=== PATIENT | male | born 1960 | race Caucasian/White ===

== ENCOUNTER 2016-06-08 05:19 | Observation (INO) | payer BC, OTHER ==
[2016-06-08] MEDS ORDERED: MULTI VITAMINS1 TAB PO (07:36)
[2016-06-08] MEDS ORDERED: VITAMIN D1000 IU PO (07:37)
[2016-06-08] MEDS ORDERED: TAMBOCOR50 MG PO (07:38)
[2016-06-08] MEDS ORDERED: TENORMIN 2525 MG/TAB PO (07:38)
[2016-06-08] MEDS ORDERED: LANTUS100 U/ML SQ (07:39)
[2016-06-08] MEDS ORDERED: LIPITOR 10MG10 MG PO (07:52)
[2016-06-08] MEDS ORDERED: GLUCOPHAGE500 MG/TAB PO (07:52)
[2016-06-08] MEDS ORDERED: DIABETA 5MG5 MG/TAB PO (07:52)
[2016-06-08] MEDS ORDERED: ZESTRIL40 MG PO (07:53)
[2016-06-08] MEDS ORDERED: VISTARIL 2525 MG/CAP PO (07:54)
[2016-06-08 10:28] VITALS: BP 116/71; PULSE 65
== END 2016-06-08 18:01 | disposition home or self-care (01) ==
LOC: SURG 05:19
DX: K80.20 Calculus of gallbladder without cholecystitis without obstruction (principal); I10 Essential (primary) hypertension; E11.9 Type 2 diabetes mellitus without complications; Z79.4 Long term (current) use of insulin
CPT/HCPCS: C9113; G0378

== ENCOUNTER 2016-07-01 08:50 | Day surgery (SDC) | payer BC ==
[~2016-07-01] VITALS: Ht 176.5 cm; Wt 137.3 kg
[~2016-07-01 08:50] MED LIST: DIABETA 5MG5 MG/TAB PO; GLUCOPHAGE500 MG/TAB PO; LANTUS100 U/ML SQ; LIPITOR 10MG10 MG PO; MULTI VITAMINS1 TAB PO; TAMBOCOR50 MG PO; TENORMIN 2525 MG/TAB PO; VISTARIL 2525 MG/CAP PO; VITAMIN D1000 IU PO; ZESTRIL40 MG PO
[2016-07-01] MEDS ORDERED: TYLENOL 500MG500 MG PO (09:20)
[2016-07-01 12:35] VITALS: BP 125/71; PULSE 54; TEMP 98.2
[2016-07-01 12:50] VITALS: BP 117/71; PULSE 52
[2016-07-01 13:05] VITALS: BP 121/73; PULSE 56
[2016-07-01 13:20] VITALS: BP 109/68; PULSE 51
[2016-07-01 13:50] VITALS: BP 113/58; PULSE 49
[2016-07-01 15:04] VITALS: BP 124/76; PULSE 55; TEMP 97.8
== END 2016-07-01 14:15 | disposition home or self-care (01) ==
LOC: SDCO 08:50
DX: K81.1 Chronic cholecystitis (principal); I10 Essential (primary) hypertension; E11.9 Type 2 diabetes mellitus without complications; Z79.4 Long term (current) use of insulin; Z79.84 Long term (current) use of oral hypoglycemic drugs; E66.01 Morbid (severe) obesity due to excess calories
CPT/HCPCS: J1100; J1170; J1885; J2270; J2405; J2704; J3010; J7030

== ENCOUNTER 2019-09-01 06:33 | Day surgery (SDC) | payer BC ==
[~2019-09-01] VITALS: Ht 175.3 cm; Wt 131.4 kg
[~2019-09-01 06:33] MED LIST changes: +TYLENOL 500MG500 MG PO; -VITAMIN D1000 IU PO; +VITAMIN D31000 IU PO
[2019-09-01] MEDS ORDERED: FORT1000TA PO (07:02)
[2019-09-01 07:28] VITALS: BP 125/81; PULSE 67; TEMP 98.2
[2019-09-01 09:47] VITALS: TEMP 97.4
[2019-09-01 10:10] VITALS: BP 125/64; PULSE 58
--- NOTE | 2019-09-01 10:10 | NUR ---
Patient returns to room 7 per cart from PACU and is awake and alert and is accompanied by Jennifer RN. IV fluids infusing and site is free of redness. Denies pain or nausea. Temp 97.6 and room air sats 97%. Call light in reach and siderails up x2.
[2019-09-01 10:25] VITALS: BP 150/76; PULSE 56
--- NOTE | 2019-09-01 10:25 | NUR ---
Eating muffin and drinking juice. Assisted up to the bathroom. Voids and returns to room. States that the urine was bloody initially but cleared up some.
[2019-09-01 10:40] VITALS: BP 134/79; PULSE 56
--- NOTE | 2019-09-01 10:40 | NUR ---
Tolerated muffin and juice without nausea. Continues to deny pain.
--- NOTE | 2019-09-01 10:50 | NUR ---
Returns to the bathroom and is able to void. Denies pain or nausea.
--- NOTE | 2019-09-01 11:00 | NUR ---
Patient returns to room and dresses self.
--- NOTE | 2019-09-01 11:20 | NUR ---
IV discontinued and given dismissal instructions. Voices understanding of these and signed. Provided office number for questions and concerns.
--- NOTE | 2019-09-01 11:23 | NUR ---
Patient dismissed to home driven by spouse and taken to the front door by Zac JAIMES per wheelchair and assisted into vehicle.
== END 2019-09-01 11:23 | disposition home or self-care (01) ==
LOC: SDCO 06:33
DX: N20.0 Calculus of kidney (principal); N21.0 Calculus in bladder; E11.9 Type 2 diabetes mellitus without complications; I10 Essential (primary) hypertension; E78.5 Hyperlipidemia, unspecified; G47.33 Obstructive sleep apnea (adult) (pediatric); E66.01 Morbid (severe) obesity due to excess calories; Z68.41 Body mass index [BMI] 40.0-44.9, adult; Z79.4 Long term (current) use of insulin; Z90.49 Acquired absence of other specified parts of digestive tract; Z79.84 Long term (current) use of oral hypoglycemic drugs
CPT/HCPCS: C1769; C2617; J0690; J2405; J2704; J3010; J7030

== ENCOUNTER 2021-06-07 13:09 | Emergency (ER) | payer OTHER, BC ==
[~2021-06-07] VITALS: Ht 175.3 cm; Wt 111.4 kg
[~2021-06-07 13:09] MED LIST changes: +FORT1000TA PO
[2021-06-07 13:19] VITALS: TEMP 98.2
[2021-06-07] MEDS ORDERED: TENORMIN 2525 MG/TAB PO (13:53)
[2021-06-07] MEDS ORDERED: GLUCOPHAGE1000 MG PO (13:55)
[2021-06-07] MEDS ORDERED: AMARYL1 MG PO (13:57)
[2021-06-07] MEDS ORDERED: TUMS ULTRA ST1000 MG PO (13:57)
[2021-06-07] MEDS ORDERED: GLUCOTROL10 MG PO (13:58)
[2021-06-07] MEDS ORDERED: MAG-OX 400400 MG/TAB PO (13:59)
[2021-06-07] MEDS ORDERED: OZEMPIC0.25 MG/0. SQ (14:00)
[2021-06-07 14:11] LABS: BASO # 0.1 K/mm3 (0.0-0.2); BASO % 0.7 % (0.0-2.0); EOS # 0.3 K/mm3 (0.0-0.7); GRAN # 6.7 K/mm3 (1.4-6.5); GRAN % 63.1 % (42.2-75.2); HEMOGLOBIN 11.2 g/dl (13.5-18.0); LYMPH # 2.9 K/mm3 (1.2-3.4); MEAN CELL VOLUME 85 fl (80.0-100.0); MEAN CORPUSCULAR HEMOGLOBIN 30 pg (27-31); MEAN CORPUSCULAR HGB CONC 35 g/dl (33.0-37.0); MEAN PLATELET VOLUME 9.4 fl (7.4-10.4); MONO # 0.6 K/mm3 (0.1-0.6); PLATELET COUNT 209 K/mm3 (130-400); RED BLOOD COUNT 3.76 M/mm3 (4.20-5.60); REDCELL DISTRIBUTION WIDTH-CV 13.5 % (11.5-14.5)
[2021-06-07 14:14] LABS: HEMATOCRIT 31.9 % (42.0-52.0)
[2021-06-07 14:23] LABS: ALBUMIN 3.6 gm/dL (3.5-5.0); BILIRUBIN,TOTAL 0.4 mg/dL (0.2-1.2); CALCIUM 8.6 mg/dL (8.4-10.2); CREATININE, serum 1.81 mg/dL (0.72-1.25); MAGNESIUM 1.7 mg/dL (1.6-2.6); POTASSIUM 3.6 mmol/L (3.5-4.5); TOTAL PROTEIN 6.5 gm/dL (6.2-8.1)
[2021-06-07 15:15] VITALS: BP 141/80; PULSE 65
== END 2021-06-07 15:15 | disposition home or self-care (01) ==
LOC: COL.ER 13:09
PROVIDERS: Student in an Organized Health Care Education/Training Program
DX: R20.2 Paresthesia of skin (principal)

== ENCOUNTER 2021-06-09 07:23 | Emergency (ER) | payer OTHER, BC ==
[~2021-06-09] VITALS: Ht 175.3 cm; Wt 111.4 kg
[~2021-06-09 07:23] MED LIST changes: +AMARYL1 MG PO; +GLUCOPHAGE1000 MG PO; +GLUCOTROL10 MG PO; +MAG-OX 400400 MG/TAB PO; +OZEMPIC0.25 MG/0. SQ; +TUMS ULTRA ST1000 MG PO
[2021-06-09 07:34] VITALS: TEMP 98.1
[2021-06-09 08:17] LABS: CALCIUM 7.4 mg/dL (8.4-10.2); CREATININE, serum 1.69 mg/dL (0.72-1.25); POTASSIUM 3.6 mmol/L (3.5-4.5)
[2021-06-09 08:20] LABS: BASO # 0.1 K/mm3 (0.0-0.2); BASO % 0.7 % (0.0-2.0); EOS # 0.5 K/mm3 (0.0-0.7); EOS % 4.1 % (0.0-4.0); GRAN # 6.7 K/mm3 (1.4-6.5); GRAN % 60.6 % (42.2-75.2); HEMOGLOBIN 11.3 g/dl (13.5-18.0); LYMPH # 3.1 K/mm3 (1.2-3.4); LYMPH % 28.6 % (20.0-51.0); MEAN CELL VOLUME 85 fl (80.0-100.0); MEAN CORPUSCULAR HEMOGLOBIN 29 pg (27-31); MEAN CORPUSCULAR HGB CONC 35 g/dl (33.0-37.0); MEAN PLATELET VOLUME 9.2 fl (7.4-10.4); MONO # 0.6 K/mm3 (0.1-0.6); MONO % 5.6 % (1.7-9.3); PLATELET COUNT 232 K/mm3 (130-400); RED BLOOD COUNT 3.85 M/mm3 (4.20-5.60); REDCELL DISTRIBUTION WIDTH-CV 13.7 % (11.5-14.5)
[2021-06-09 08:22] LABS: HEMATOCRIT 32.7 % (42.0-52.0)
[2021-06-09] MEDS ORDERED: CALCITRIOL PO (10:36)
[2021-06-09] MEDS ORDERED: TUMS ULTRA ST1000 MG PO (10:36)
[2021-06-09 10:54] VITALS: BP 149/90; PULSE 67
== END 2021-06-09 11:09 | disposition home or self-care (01) ==
LOC: COL.ER 07:23
PROVIDERS: Student in an Organized Health Care Education/Training Program
DX: E83.51 Hypocalcemia (principal)